=== PATIENT | male | born 1970 | race Caucasian/White ===

== ENCOUNTER 2019-04-19 22:15 | Emergency (ER) | payer MEDICAID, OTHER | END 2019-04-20 00:10 | disposition left against medical advice (07) | LOC: ER 23:44 | DX: R68.89 Other general symptoms and signs (principal); Z53.21 Procedure and treatment not carried out due to patient leaving prior to being seen by health care provider ==

== ENCOUNTER 2022-10-03 17:07 | Emergency (ER) | payer MEDICAID ==
[~2022-10-03] VITALS: Ht 165.1 cm; Wt 72.0 kg
[2022-10-03 17:33] VITALS: BP 157/101; PULSE 58; RESP 18; TEMP 98.3; O2SAT 100
[2022-10-03 18:24] LABS: BASOPHILS % 0.4 % (0.0-2.0); EOSINOPHILS % 2.4 % (0.0-5.0); HEMATOCRIT. 41.5 % (42.0-52.0); LYMPHOCYTES % 28.9 % (20.0-50.0); MEAN CORPUSCULAR HEMOGLOBIN 30.4 pg (28.0-32.0); MEAN CORPUSCULAR HGB CONC 33.6 g/dL (31.0-37.0); MEAN CORPUSCULAR VOLUME 90.6 fL (80.0-94.0); MEAN PLATELET VOLUME 8.9 fl (7.4-10.4); MONOCYTES % 9.9 % (2.0-8.0); NEUTROPHILS % 58.4 % (40.0-76.0); PLATELET 193 x1000/uL (130-400); RED BLOOD CELL COUNT 4.59 mill/uL (4.7-6.1); RED CELL DISTRIBUTION WIDTH 13.8 % (11.6-14.6); WHITE BLOOD COUNT 8.8 x1000/uL (4.5-11.0)
[2022-10-03 18:31] LABS: CHLORIDE 106 mEq/L (98-107); INDEX HEMOLYSI 1 (1-3); INDEX ICTERIC 1 (1-4); INDEX LIPEMIC 1 (1-3); POTASSIUM 3.7 mEq/L (3.5-5.1); SODIUM 137 mEq/L (136-145)
[2022-10-03 18:43] LABS: ALANINE AMINOTRANSFERASE 31 IU/L (13-61); ALBUMIN 3.4 g/dL (3.4-5.0); ASPARTATE AMINOTRANSFERASE 30 IU/L (15-37); BILIRUBIN TOTAL 0.8 mg/dL (0.1-1.0); CARBON DIOXIDE 26 mEq/L (21-32); GLUCOSE 97 mg/dL (70-105); PROTEIN TOTAL 7.1 g/dL (6.0-8.3); TROPONIN I HIGH SENSITIVITY 6 ng/L (<78); UREA NITROGEN BLOOD 15 mg/dL (7-21)
[2022-10-03 20:15] LABS: TROPONIN I HIGH SENSITIVITY 5 ng/L (<78)
[2022-10-03] MEDS ORDERED: NAPR-1129 MT (20:52)
== END 2022-10-03 21:23 | disposition home or self-care (01) ==
LOC: ER 17:07
DX: R07.89 Other chest pain (principal); G89.11 Acute pain due to trauma; V19.49XA Pedal cycle driver injured in collision with other motor vehicles in traffic accident, initial encounter; Y93.89 Activity, other specified; Y92.89 Other specified places as the place of occurrence of the external cause; Y99.8 Other external cause status
CPT/HCPCS: 36415; 71045; 73030; 73564; 80053; 84484; 85025; 99284

== ENCOUNTER 2023-06-11 05:22 | Inpatient (IN) | payer MEDICAID ==
[2023-06-11] VITALS (61 sets, daily range): BP systolic 110–171; BP diastolic 72–108; PULSE 52–83; RESP 12–28; TEMP 97.5–98.6
[~2023-06-11] VITALS: Ht 165.1 cm; Wt 70.3 kg
[~2023-06-11 05:22] MED LIST: NAPR-1129 MT
[2023-06-11] MEDS: ASPIRIN 325MG TABLET PO ONE (06:06)
[2023-06-11] MEDS: HEPARIN 5000 UNITS/ML VIAL IV ONE (06:06)
[2023-06-11] MEDS ORDERED: HEPARIN 1000 UNITS/ML 10ML ONE (06:22)
[2023-06-11] MEDS ORDERED: LIDOCAINE HCL 1% 20ML VIAL (Pyxis) INJ ONE (06:22)
[2023-06-11] MEDS ORDERED: EPINEPHRINE 0.1MG/ML (1:10,000) 10ML SYR ONE (06:23)
[2023-06-11] MEDS ORDERED: AMIODARONE HCL 50MG/ML 3ML VIAL IV ONE (06:23)
[2023-06-11] MEDS ORDERED: FENTANYL CITRATE/PF 50MCG/ML 2ML VIAL ONE (06:24)
[2023-06-11] MEDS ORDERED: ATROPINE SULFATE 1MG/10ML SYR ONE (06:24)
[2023-06-11] MEDS ORDERED: IODIXANOL 320MG/ML 100 ML BOTTLE IV ONE ×2 (06:24→07:07)
[2023-06-11] MEDS ORDERED: MIDAZOLAM HCL 2 MG/2 ML VIAL ONE (06:24)
[2023-06-11 06:38] LABS: BASOPHILS % 1.2 % (0.0-2.0); EOSINOPHILS % 1.9 % (0.0-5.0); HEMATOCRIT. 43.6 % (42.0-52.0); HEMOGLOBIN. 14.8 g/dL (14.0-18.0); LYMPHOCYTES % 47.3 % (20.0-50.0); MEAN CORPUSCULAR HEMOGLOBIN 31.4 pg (28.0-32.0); MEAN CORPUSCULAR VOLUME 92.2 fL (80.0-94.0); MEAN PLATELET VOLUME 9.8 fl (7.4-10.4); NEUTROPHILS % 44.6 % (40.0-76.0); PLATELET 195 x1000/uL (130-400); RED BLOOD CELL COUNT 4.73 mill/uL (4.7-6.1); RED CELL DISTRIBUTION WIDTH 13.5 % (11.6-14.6); WHITE BLOOD COUNT 7.7 x1000/uL (4.5-11.0)
[2023-06-11 06:59] LABS: ALANINE AMINOTRANSFERASE 253 IU/L (10-49); ALBUMIN 3.7 g/dL (3.2-4.8); ASPARTATE AMINOTRANSFERASE 240 IU/L (<34); BILIRUBIN TOTAL 0.5 mg/dL (0.1-1.0); CALCIUM 7.6 mg/dL (8.7-10.4); CARBON DIOXIDE 22 mEq/L (21-32); CHLORIDE 105 mEq/L (98-107); CREATININE 1.2 mg/dL (0.6-1.3); GLUCOSE 185 mg/dL (70-105); POTASSIUM 3.1 mEq/L (3.5-5.1); PROTEIN TOTAL 6.1 g/dL (6.0-8.3); SODIUM 136 mEq/L (136-145); UREA NITROGEN BLOOD 13 mg/dL (9-23)
[2023-06-11] MEDS ORDERED: TICAGRELOR 90 MG TABLET PO ONE (07:25)
[2023-06-11] MEDS ORDERED: CLOPIDOGREL 75MG TABLET PO ONE (07:30)
[2023-06-11] MEDS ORDERED: NITROGLYCERIN 50MG PREMIX 250 ML IV PRN (07:30)
[2023-06-11] MEDS ORDERED: ATROPINE SULFATE 1MG/10ML SYR IV PRN (07:30)
[2023-06-11] MEDS ORDERED: ONDANSETRON HCL 4MG/2ML INJ IV PRN ×2 (07:30→09:15)
[2023-06-11] MEDS ORDERED: ACETAMINOPHEN 325MG TABLET PO PRN ×2 (07:30→09:15)
[2023-06-11] MEDS ORDERED: MORPHINE SULFATE 2 MG/ML CPJ (NOT FOR IM USE) IV PRN ×2 (07:30)
[2023-06-11 07:51] LABS: TROPONIN I HIGH SENSITIVITY 310 ng/L (3.0-53)
[2023-06-11] MEDS ORDERED: NALOXONE HCL 0.4MG/ML VIAL IV PRN (08:15)
[2023-06-11] MEDS ORDERED: GUAIFENESIN 200MG/10ML SUGAR FREE UDC PO PRN (09:15)
[2023-06-11] MEDS ORDERED: TRAMADOL 50MG TABLET PO PRN (09:15)
[2023-06-11] MEDS ORDERED: DOCUSATE SODIUM 100MG CAPSULE PO PRN (09:15)
[2023-06-11] MEDS: ASPIRIN 325MG TABLET PO SCH (10:03)
[2023-06-11] MEDS: SODIUM CHL 0.45% + KCL 20MEQ/L 1,000 ML IV SCH (10:03)
[2023-06-11] MEDS: METOPROLOL TARTRATE 25MG TABLET PO SCH (10:45)
[2023-06-11] MEDS: POTASSIUM CHLORIDE 20MEQ TABLET SR PO NR (10:50)
[2023-06-11] MEDS: KCL 20MEQ/100ML PREMIX 100 ML IV SCH (10:51)
[2023-06-11 12:44] LABS: CALCIUM 8.2 mg/dL (8.7-10.4); CARBON DIOXIDE 24 mEq/L (21-32); CHLORIDE 107 mEq/L (98-107); CREATININE 1.1 mg/dL (0.6-1.3); GLUCOSE 111 mg/dL (70-105); POTASSIUM 4.1 mEq/L (3.5-5.1); SODIUM 135 mEq/L (136-145); UREA NITROGEN BLOOD 14 mg/dL (9-23)
[2023-06-11] MEDS: ATORVASTATIN CALCIUM 40MG TABLET PO SCH (21:15)
[2023-06-11 22:04] LABS: CALCIUM 8.4 mg/dL (8.7-10.4); CARBON DIOXIDE 24 mEq/L (21-32); CHLORIDE 108 mEq/L (98-107); CREATININE 0.9 mg/dL (0.6-1.3); GLUCOSE 101 mg/dL (70-105); POTASSIUM 4.3 mEq/L (3.5-5.1); SODIUM 136 mEq/L (136-145); UREA NITROGEN BLOOD 11 mg/dL (9-23)
[2023-06-12] VITALS (39 sets, daily range): BP systolic 91–158; BP diastolic 28–100; PULSE 48–69; RESP 12–26; TEMP 97.9–98.5
[2023-06-12] MEDS: SODIUM CHL 0.45% + KCL 20MEQ/L 1,000 ML IV SCH (00:24)
[2023-06-12 05:25] LABS: BASOPHILS % 0.4 % (0.0-2.0); EOSINOPHILS % 1.1 % (0.0-5.0); HEMATOCRIT. 44.8 % (42.0-52.0); HEMOGLOBIN. 15.1 g/dL (14.0-18.0); LYMPHOCYTES % 16.8 % (20.0-50.0); MEAN CORPUSCULAR HEMOGLOBIN 31.6 pg (28.0-32.0); MEAN CORPUSCULAR HGB CONC 33.7 g/dL (31.0-37.0); MEAN CORPUSCULAR VOLUME 93.6 fL (80.0-94.0); MEAN PLATELET VOLUME 9.3 fl (7.4-10.4); MONOCYTES % 8.3 % (2.0-8.0); NEUTROPHILS % 73.4 % (40.0-76.0); PLATELET 209 x1000/uL (130-400); RED BLOOD CELL COUNT 4.79 mill/uL (4.7-6.1); RED CELL DISTRIBUTION WIDTH 13.5 % (11.6-14.6); WHITE BLOOD COUNT 10.4 x1000/uL (4.5-11.0)
[2023-06-12 05:38] LABS: ALANINE AMINOTRANSFERASE 223 IU/L (10-49); ALBUMIN 4.1 g/dL (3.2-4.8); ASPARTATE AMINOTRANSFERASE 342 IU/L (<34); BILIRUBIN TOTAL 1.1 mg/dL (0.1-1.0); CALCIUM 8.4 mg/dL (8.7-10.4); CARBON DIOXIDE 23 mEq/L (21-32); CHLORIDE 110 mEq/L (98-107); CHOLESTEROL 176 mg/dL (<200); CREATININE 0.9 mg/dL (0.6-1.3); GLUCOSE 102 mg/dL (70-105); HDL CHOLESTEROL 46 mg/dL (>55); LDL CHOLESTEROL 123 mg/dL (5-100); POTASSIUM 4.4 mEq/L (3.5-5.1); PROTEIN TOTAL 7.1 g/dL (6.0-8.3); SODIUM 135 mEq/L (136-145); TRIGLYCERIDE 133 mg/dL (0-150); UREA NITROGEN BLOOD 13 mg/dL (9-23)
[2023-06-12] MEDS: ASPIRIN 81MG TABLET PO SCH (09:04)
[2023-06-12] MEDS: CLOPIDOGREL 75MG TABLET PO SCH (09:04)
[2023-06-13] VITALS (7 sets, daily range): BP systolic 114–147; BP diastolic 71–96; PULSE 52–62; RESP 18–20; TEMP 97.4–98.9; O2SAT 98
[2023-06-13] MEDS ORDERED: CLOP-31 PO (11:23)
[2023-06-13] MEDS ORDERED: FAMO-135 MT (11:23)
[2023-06-13] MEDS ORDERED: ASPI-1160 PO (11:23)
[2023-06-13] MEDS ORDERED: LIP40 PO (11:23)
[2023-06-13] MEDS ORDERED: METO25TA6 PO (11:23)
== END 2023-06-13 19:00 | disposition home or self-care (01) | DRG 174 ==
LOC: ER 05:22 → CVICU 06:19 → 7WST 06-13 02:24
PROVIDERS: ADMIT Hospitalist; ATTEND Hospitalist
PROC: B211YZZ Fluoroscopy of Multiple Coronary Arteries using Other Contrast (ICD-10-PCS; principal; 2023-06-11)
PROC: 027036Z Dilation of Coronary Artery, One Artery with Three Drug-eluting Intraluminal Devices, Percutaneous Approach (ICD-10-PCS; 2023-06-11)
DX: I21.19 ST elevation (STEMI) myocardial infarction involving other coronary artery of inferior wall (principal); I46.2 Cardiac arrest due to underlying cardiac condition; I49.01 Ventricular fibrillation; I47.20 Ventricular tachycardia, unspecified; E87.6 Hypokalemia; Z82.49 Family history of ischemic heart disease and other diseases of the circulatory system; E78.5 Hyperlipidemia, unspecified; Z79.02 Long term (current) use of antithrombotics/antiplatelets; Z98.61 Coronary angioplasty status
CPT/HCPCS: 36415; 71045; 80048; 80053; 80061; 82962; 83735; 83880; 84484; 85025; 85347; 86850; 86900; 92941; 93005; 93306; 93458; 93970; 99291; C1725; C1760; C1769; C1874; C1887; C1893; J0282; J0461; J1644; J2250; J3010; J3480; J3490; Q9967; J8499

== ENCOUNTER 2023-07-13 21:22 | Emergency (ER) | payer OTHER ==
[~2023-07-13] VITALS: Ht 165.1 cm; Wt 71.0 kg
[~2023-07-13 21:22] MED LIST changes: +ASPI-1160 PO; +CLOP-31 PO; +FAMO-135 MT; +LIP40 PO; +METO25TA6 PO; -NAPR-1129 MT
[2023-07-13 21:32] VITALS: BP 157/76; PULSE 65; RESP 16; TEMP 98.3; O2SAT 100
[2023-07-14] MEDS ORDERED: FAMO-135 MT (00:31)
[2023-07-14] MEDS ORDERED: LIP40 PO (00:31)
[2023-07-14] MEDS ORDERED: ASPI-1160 PO (00:31)
[2023-07-14] MEDS ORDERED: CLOP-31 PO (00:31)
== END 2023-07-14 01:25 | disposition home or self-care (01) ==
LOC: ER 21:22
DX: Z76.0 Encounter for issue of repeat prescription (principal); I10 Essential (primary) hypertension; Z98.890 Other specified postprocedural states
CPT/HCPCS: 99283